=== PATIENT | male | born 1965 | race American Indian/Alaskan Native ===

== ENCOUNTER 2018-12-11 08:48 | Emergency (ER) | payer BC ==
[2018-12-11 09:02] VITALS: RESP 18
[2018-12-11] MEDS ORDERED: Sodium Chloride 0.9% 1,000 ML IV ONE (09:15)
[2018-12-11] MEDS ORDERED: Tdap Vaccine 0.5 ml Vial (10-64 yrs) IM ONE (09:19)
[2018-12-11] MEDS ORDERED: Sodium Chloride 0.9% 1,000 ML ONE (09:26)
[2018-12-11] MEDS ORDERED: Tetanus/Diphtheria Toxoids 0.5 ml Syringe IM ONE (09:26)
--- NOTE | 2018-12-11 09:34 | C.PDOC ---
History Of Present Illness 53 year old male with a PMHx of diabetes and hypertension presents for evaluation of pain, swelling, and drainage to the right thigh for 1 week. The pt notes he scratched the area, since then it has become more swollen with purulent drainage. Admits to ETOH use. Admits he is noncompliant with his medications for his diabetes and HTN and not up to date with tetanus. Denies fever, chills, CP, ANDRE, changes in vision, sob, or any other associated symptoms. Time Seen by Provider: 12/11/18 08:55 Chief Complaint (Nursing): Abnormal Skin Integrity History Per: Patient History/Exam Limitations: no limitations Onset/Duration Of Symptoms: Days (x1 week) Current Symptoms Are (Timing): Still Present Location Of Injury: Right: Thigh Quality Of Symptoms: Painful, Itching, Swollen, Draining Recent travel outside of the [place]: No Past Medical History Reviewed: Historical Data, Nursing Documentation, Vital Signs Vital Signs: Last Vital Signs Temp 98.1 F 12/11/18 08:59 Pulse 83 12/11/18 08:59 Resp 18 12/11/18 08:59 BP 214/127 H 12/11/18 08:59 Pulse Ox 100 12/11/18 08:59 - Medical History PMH: HTN Family History: States: Unknown Family Hx - Social History Hx Alcohol Use: Yes Hx Substance Use: No - Immunization History Hx Tetanus Toxoid Vaccination: No Hx Influenza Vaccination: No Hx Pneumococcal Vaccination: No Review Of Systems Except As Marked, All Systems Reviewed And Found Negative. Constitutional: Negative for: Fever, Chills Eyes: Negative for: Vision Change Cardiovascular: Negative for: Chest Pain Skin: Positive for: Other (pain, swelling, and drainage to the RT thigh. ) Neurological: Negative for: Headache Physical Exam - Physical Exam Appears: Non-toxic, No Acute Distress Skin: Warm, Dry, Other (RT upper lateral thigh: 2 cm open wound with surround (+) swelling. (+) induration. (+) granulation) Head: Atraumatic, Normacephalic Eye(s): bilateral: Normal Inspection, EOMI Nose: Normal Oral Mucosa: Moist Neck: Normal ROM, Supple Chest: Symmetrical, No Deformity Cardiovascular: Rhythm Regular Respiratory: Normal Breath Sounds, No Rales, No Rhonchi, No Wheezing Gastrointestinal/Abdominal: Normal Exam, Soft, No Tenderness Extremity: Normal ROM Extremity: Bilateral: Atraumatic, Normal Color And Temperature, Normal ROM Neurological/Psych: Oriented x3, Normal Speech, Normal Cognition ED Course And Treatment - Laboratory Results Result Diagrams: 12/11/18 09:35 12/11/18 09:35 ECG: Interpreted By Me (Dr Gomez) ECG Rhythm: Sinus Tachycardia Interpretation Of ECG: ST at 106 bpm with mild elevate in later leads secondary to LVH Rate From EC O2 Sat by Pulse Oximetry: 100 (RA) Pulse Ox Interpretation: Normal Progress Note: Open wound was irrigated, and drainage removed. Bacitracin applied and dressed. On r-evaluation, pt notes he will be complaint with his outpt medication and will f/u in 2 days. Discussed signs and symptoms of concern. Pt continues to denies chest pain, head ache, sob, or visual changes. Discusesd risks of untreated HTN, pt verbalized understanding. Pt notes he does not always drink alcohol daily and does not get symptoamtic if he does not drink. Does no want detox. Pt is clinically sober, vitals are stable. Instru cted strict follow up in 2 days and signs of concern. Case discussed and pt evaluated by Dr Gomez who evaluated EKG, work up and agreed upon plan and discharge. Disposition - Disposition Disposition: HOME/ ROUTINE Disposition Time: 10:45 Condition: STABLE Additional Instructions: Follow up with PMD/ ER in 2 days for wound check. 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 - Scribe Statement The provider has reviewed the documentation as recorded by the Scribe (Varsha Torres) All medical record entries made by the Scribe were at my direction and personally dictated by me. I have reviewed the chart and agree that the record accurately reflects my personal performance of the history, physical exam, medical decision making, and the department course for this patient. I have also personally directed, reviewed, and agree with the discharge instructions and disposition. Procedure - Procedure and Findings -: Irrigated wound, removed additional drainage and covered the area.
[2018-12-11 09:39] LABS: BASO # 0.1 K/uL (0.0-0.2); BASO % 1.1 % (0.0-2.0); EOS # 0.1 K/uL (0.0-0.7); EOS % 1.9 % (0.0-4.0); HEMOGLOBIN 14.8 g/dL (12.0-18.0); LYMPH # 1.8 K/uL (1.0-4.3); LYMPH % 24.4 % (20.0-40.0); MEAN CELL VOLUME 94.1 fL (80.0-94.0); MEAN CORPUSCULAR HEMOGLOBIN 32.4 pg (27.0-31.0); MEAN CORPUSCULAR HGB CONC 34.4 g/dL (33.0-37.0); MEAN PLATELET VOLUME 9.3 fL (7.2-11.7); MONO # 0.7 K/uL (0.0-0.8); MONO % 10.2 % (0.0-10.0); NEUT # 4.6 K/uL (1.8-7.0); NEUT % 62.4 % (50.0-75.0); RBC 4.59 Mil/uL (4.40-5.90); RED CELL DISTRIBUTION WIDTH 12.8 % (11.5-14.5); WHITE BLOOD COUNT 7.3 K/uL (4.8-10.8)
[2018-12-11 10:02] LABS: CK-MB 1.25 ng/mL (0.0-3.38)
[2018-12-11 10:05] LABS: ALB/GLOB RATIO 1.3 (1.0-2.1); ALBUMIN 4.7 g/dL (3.5-5.0); ALT/SGPT 13 U/L (21-72); AST/SGOT 28 U/L (17-59); BLOOD UREA NITROGEN 18 mg/dL (9-20); CALCIUM 9.7 mg/dl (8.6-10.4); GFR NON-AFRICAN AMERICAN > 60; LIPASE 66 U/L (23-300)
[2018-12-11] MEDS ORDERED: cefTRIAXone IV 1 gm in Dextros 50 ML IV ONE (10:38)
[2018-12-11] MEDS ORDERED: Bacitracin 500 Units/gm Oint Foilpak UD TOP ONE (10:39)
[2018-12-11 13:44] VITALS: BP 136/74; PULSE 83; TEMP 98.3
[2018-12-11 14:05] VITALS: O2SAT 100
--- NOTE | 2018-12-13 10:05 | CARD ---
APPROVED REPORT Date of service: 12/11/2018 EKG Measurement Heart [id number] <Conclusion> Sinus tachycardia Left axis deviation Abnormal ECG
== END 2018-12-11 13:48 | disposition home or self-care (01) ==
LOC: C.ER 08:48
DX: L03.115 Cellulitis of right lower limb (principal); L02.415 Cutaneous abscess of right lower limb; I10 Essential (primary) hypertension; Z91.14 Patient's other noncompliance with medication regimen
CPT/HCPCS: 80053; 82550; 82553; 83690; 84484; 85025; 90471; 90715; 93005; 96361; 96374; 99285; G0480; J0696; J7030